=== PATIENT | male | born 1985 | race African-American/Black ===

== ENCOUNTER 2022-09-03 22:39 | Emergency (ER) | payer OTHER ==
[2022-09-03 22:47] VITALS: PULSE 114; RESP 24; TEMP 99.2; BMI 47.9
[2022-09-03] MEDS ORDERED: predniSONE 20 MG TABLET (UD) PO ONE (22:57)
[2022-09-03] MEDS ORDERED: predniSONE 20 MG TABLET (UD) ONE (23:02)
[2022-09-03] MEDS ORDERED: ALBUTEROL SO4 2.5/IPRATROPIUM 0.5 INH SOL 3 ML VIAL.NEB. NEB ONE (23:03)
[2022-09-03] MEDS: ALBUTEROL SO4 2.5/IPRATROPIUM 0.5 INH SOL 3 ML VIAL.NEB. NEB SCH ×2 (23:06→23:24)
[2022-09-03] MEDS ORDERED: ATENOLOL 50 MG TABLET (FP) PO ONE (23:19)
[2022-09-03 23:57] VITALS: BP 158/108
== END 2022-09-03 23:57 | disposition home or self-care (01) ==
LOC: FER 22:39
PROC: 3E0F7GC Introduction of Other Therapeutic Substance into Respiratory Tract, Via Natural or Artificial Opening (ICD-10-PCS; principal; 2022-09-03)
DX: J45.901 Unspecified asthma with (acute) exacerbation (principal); R51.9 Headache, unspecified; R09.81 Nasal congestion
CPT/HCPCS: 0241U-QW; 99283-25